=== PATIENT | female | born 1980 | race Caucasian/White ===

== ENCOUNTER 2017-10-28 14:16 | Emergency (ER) | payer SELFPAY ==
[2017-10-28 14:38] VITALS: BP 113/75
[2017-10-28] MEDS ORDERED: Tetracaine 0.5% OPTH.SOL 4 ML* 1 DROP BTL LEFT EYE ONE (14:51)
[2017-10-28] MEDS ORDERED: Fluorescein Sodium TOPICAL* 1 MG TEST OPHTHALMIC ONE (14:52)
--- NOTE | 2017-10-28 15:43 | UC ---
Parth Marx Natalie, scribed for Denis Hirsch MD on 10/28/17 at 1543 . Eye Complaint HPI - HPI Summary HPI Summary: The pt is a 36 y/o F presenting to c/o left eye pain starting morning of . The pain is described as throbbing coming from underneath the eye. The pain is rated 3/10. Pt additionally c/o eye redness. Pt denies vision change. The pt wears glasses but does not wear contacts. - History of Current Complaint Chief Complaint: UCEye Stated Complaint: EYE COMPLAINT Time Seen by Provider: 10/28/17 14:45 Hx Last Menstrual Period: oct 15 Onset/Duration: Sudden Onset, Lasting Days - starting 10/26/17, Still Present Timing: Days Severity Initially: Mild Severity Currently: Mild Pain Intensity: 3 Pain Scale Used: 0-10 Numeric Location of Injury: Sclera Character: Throbbing Aggravating Factor(s): Nothing Alleviating Factor(s): Nothing Associated Signs And Symptoms: Negative: Drainage (Clear), Vision Impairment Left - Allergies/Home Medications Allergies/Adverse Reactions: Allergies Allergy/AdvReac Type Severity Reaction Status Date / Time Shellfish Allergy Allergy Hives Verified 10/28/17 14:32 PMH/Surg Hx/FS Hx/Imm Hx - Surgical History Surgical History: Yes Surgery Procedure, Year, and Place: wisdom teeth - Family History Known Family History: Negative: Cardiac Disease, Hypertension - Social History Alcohol Use: Daily Alcohol Amount: 2 drinks Substance Use Type: Marijuana Smoking Status (MU): Never Smoked Tobacco Type: Cigarettes Amount Used/How Often: 5-7 cigs weekly Household Exposure Type: Cigarettes Review of Systems Constitutional: Other - NEGATIVE: fever Eyes: Other - POSITIVE: left eye pain, left eye redness; NEGATIVE: vision changes, drainage All Other Systems Reviewed And Are Negative: Yes Physical Exam Triage Information Reviewed: Yes Appearance: Well-Appearing, No Pain Distress Vital Signs: Initial Vital Signs Temp 98.0 F 10/28/17 14:33 Pulse 67 10/28/17 14:33 Resp 16 10/28/17 14:33 BP 113/75 10/28/17 14:33 Pulse Ox 99 10/28/17 14:33 Vital Signs Reviewed: Yes Eyes: Positive: Other: - scleral injection in left eye lateral aspect 1 cm in diameter, good pupillary response, no hyphema. No papilledema or retinal abnormality noted on exam. No flourescein uptake. There is a 2mm area of conjunctival swelling, yellow in color. No FB seen. ENT: Positive: Normal ENT inspection Neck: Positive: Supple, Nontender Respiratory: Positive: Other: - CTA, breath sounds present Cardiovascular: Positive: RRR Abdomen Description: Positive: Nontender, Soft Bowel Sounds: Positive: Present Musculoskeletal Exam: Normal Musculoskeletal: Positive: Strength Intact, ROM Intact Neurological: Positive: Other: - normal, sensory/motor intact, A&O x3 Psychological: Positive: Other: - affect/mood appropriate Skin: Positive: Other - warm, color refelcts adequate perfusion, dry Eye Complaint Course/Dx - Course Course Of Treatment: Allergies noted. EYE PAIN IS ONLY LATERAL AT THE SITE OF THE SCLERAL INJECTION. NL PUPILLARY RESPONSE. RX TOBREX AND F/O OHTHALMOLOGY. - Differential Dx/Diagnosis Provider Diagnoses: LEFT EYE PAIN. SCLERAL INJECTION Discharge - Discharge Plan Condition: Stable Disposition: HOME Prescriptions: Tobramycin 0.3% OPHTH.ESTELLE* 1 drop LEFT EYE Q4H #1 btl Patient Education Materials: Eye Pain (ED) Referrals: [facility] [Provider Group] YODIT GRIFFITH MD [Provider Group] Additional Instructions: FOLLOW UP WITH AN PROMOTIONAL MARKETING ANALYST FOR YOUR LEFT EYE PAIN. CALL TODAY TO ARRANGE FOLLOW UP IN 1-2 DAYS. GET RECHECKED FOR ANY WORSENING OF YOUR CONDITION OR QUESTIONS OR CONCERNS. The documentation as recorded by the Parth valentin Natalie accurately reflects the service I personally performed and the decisions made by me, Denis Hirsch MD.
== END 2017-10-28 15:42 | disposition home or self-care (01) ==
LOC: UCEAST 14:16
DX: H15.89 Other disorders of sclera (principal); F17.210 Nicotine dependence, cigarettes, uncomplicated
CPT/HCPCS: 99212; A9270-GY; G0463